=== PATIENT | male | born 1955 | race Caucasian/White ===

== ENCOUNTER 2022-04-12 19:00 | Inpatient (IN) | payer MEDICAID ==
[~2022-04-12] VITALS: Ht 188 cm; Wt 118.0 kg
[2022-04-12] VITALS (248 sets, daily range): BP systolic 143; BP diastolic 69; PULSE 112; TEMP 98.4; O2SAT 58–100
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
[2022-04-12 20:32] LABS: HEMATOCRIT 28.8 % (42.0-52.0); HEMOGLOBIN 9.7 g/dl (13.5-18.0)
[2022-04-12 20:33] LABS: INR 1.7 (0.8-3.0)
[2022-04-12] MEDS ORDERED: ASPIRIN 81M81 MG/TA2 (21:10)
[2022-04-12] MEDS ORDERED: FOLIC ACID 11 MG/TA1 (21:10)
[2022-04-12] MEDS ORDERED: LIPITOR 40MG TA40 MG PO (21:11)
[2022-04-12] MEDS ORDERED: PRIL40 (21:11)
[2022-04-12] MEDS ORDERED: COZAAR 50MG50 MG/TAB (21:11)
[2022-04-12] MEDS ORDERED: BACTRIM DS 8001 TAB (21:12)
[2022-04-12] MEDS ORDERED: DESYREL 50MG50 MG (21:14)
[2022-04-12] MEDS ORDERED: DAILY VITE1 TA1 (21:16)
[2022-04-12 22:00] LABS: URINE APPEARANCE Clear (CLEAR/HAZY); URINE BLOOD 3+ (NEGATIVE); URINE COLOR Yellow (YELLOW); URINE GLUCOSE Negative (NEGATIVE); URINE KETONE TRACE (NEGATIVE); URINE NITRATE Negative (NEGATIVE); URINE PROTEIN(semi-quant) TRACE (NEGATIVE); URINE UROBILINOGEN 0.2 E.U/dL (0.2-1.0)
[2022-04-12 22:04] LABS: SQUAMOUS EPITHELIAL 0-2 /hpf (0-10); URINE BACTERIA Rare /hpf (NONE SEEN); URINE RBC >50 /hpf (0-2); URINE WBC >50 /hpf (0-2)
[2022-04-12 22:14] LABS: COLLECTION METHOD CLEAN CATCH
--- NOTE | 2022-04-12 23:35 | NUR ---
Dr. Mendieta at bedside at this time.
[2022-04-13] VITALS (1228 sets, daily range): BP systolic 78–121; BP diastolic 53–86; PULSE 79–98; TEMP 97.3–99; O2SAT 92–100
[2022-04-13 01:15] LABS: HEMATOCRIT 27.7 % (42.0-52.0); HEMOGLOBIN 9.5 g/dl (13.5-18.0)
[2022-04-13 07:11] LABS: INR 1.7 (0.8-3.0); PROTHROMBIN TIME 19.4 SECONDS (9.7-12.8)
[2022-04-13 07:40] LABS: ALBUMIN 2.1 gm/dL (3.4-4.8); BILIRUBIN,TOTAL 3.2 mg/dL (0.2-1.2); CREATININE, serum 1.05 mg/dL (0.72-1.25); MAGNESIUM 1.7 mg/dL (1.6-2.6); POTASSIUM 4.8 mmol/L (3.5-4.5)
[2022-04-13 07:43] LABS: BASO # 0.1 K/mm3 (0.0-0.2); BASO % 0.5 % (0.0-2.0); EOS # 0.1 K/mm3 (0.0-0.7); EOS % 0.8 % (0.0-4.0); GRAN # 7.7 K/mm3 (1.4-6.5); GRAN % 59.5 % (42.2-75.2); LYMPH # 4.2 K/mm3 (1.2-3.4); LYMPH % 32.5 % (20.0-51.0); MEAN CELL VOLUME 97 fl (80.0-100.0); MEAN CORPUSCULAR HGB CONC 35 g/dl (33.0-37.0); MEAN PLATELET VOLUME 12.9 fl (7.4-10.4); MONO # 0.8 K/mm3 (0.1-0.6); MONO % 6.3 % (1.7-9.3); PLATELET COUNT 76 K/mm3 (130-400); RED BLOOD COUNT 2.78 M/mm3 (4.20-5.60); REDCELL DISTRIBUTION WIDTH-CV 19.3 % (11.5-14.5)
[2022-04-13 07:45] LABS: HEMOGLOBIN 9.4 g/dl (13.5-18.0); MEAN CORPUSCULAR HEMOGLOBIN 34 pg (27-31)
[2022-04-13 08:06] LABS: ALBUMIN 2.1 gm/dL (3.4-4.8); BILIRUBIN,DIRECT 1.1 mg/dL (0.0-0.5); BILIRUBIN,TOTAL 3.2 mg/dL (0.2-1.2); TOTAL PROTEIN 5.8 gm/dL (6.2-8.1)
--- NOTE | 2022-04-13 11:53 | NUR ---
PT SLEEPING DURING REPORT, ON PRECEDEX GTT. 0935: PT DOWN FOR EGD AT THIS TIME. DR. GARCIA IN ROOM TO DISCUSS POC W/ DAUGHTER MICAELA. ALL QUESTIONS ANSWERED. 1015: PT BACK FROM PROCEDURE AT THIS TIME. HOOKED UP TO MONITORING/POST OP VS. DR. GARCIA IN ROOM. ORDERS FOR NG. DAUGHTER AWARE OF PT BEING BACK TO ROOM. 1030: NG TUBE PLACED AND SECURED PER ORDER. NO ISSUES NOTED.
--- NOTE | 2022-04-13 12:46 | NUR ---
PRECEDEX PLACED ON STANDBY D/T PT SOMNOLENCE AND LOW BP.
--- NOTE | 2022-04-13 19:00 | NUR ---
BEDSIDE REPORT RECEIVED FROM STEFFANIE PATEL. PT IS SLEEPING. LR CURRENTLY RUNNING AT 60ML/HR. PT IS RECEIVING LACTULOSE Q2HRS UNTIL MULTIPLE BOWEL MOVEMENTS ARE MADE. PT WAS ABLE TO TELL ME THE YEAR, MONTH, AND THE CITY HE WAS IN. PT RESPONDS TO SPEECH. PTS HAS BECOME WHEEZY DURING INSPIRATION AND EXPIRATION.
--- NOTE | 2022-04-13 21:00 | NUR ---
CALL MADE TO LIOR YOUSIF ABOUT PTS BREATHING AND LUNG SOUNDS. PT IS STARTING TO SLIGHTLY BELLY BREATHE AND IS WHEEZING. BENJA HAS BEEN INFORMED AND STARTING BREATHING TREATMENTS.
[2022-04-14] VITALS (1403 sets, daily range): BP systolic 97–132; BP diastolic 72–87; PULSE 87–104; TEMP 97.9–99.5; O2SAT 95–100
--- NOTE | 2022-04-14 04:05 | NUR ---
PTS BLOOD GLUCOSE WAS 68 AT 0400 BLOOD SUGAR CHECK. GAVE PT 240MLS OF ORANGE JUICE AND WILL RECHECK SUGAR IN 15 MINUTES.
[2022-04-14 05:59] LABS: BASO # 0.1 K/mm3 (0.0-0.2); BASO % 0.6 % (0.0-2.0); EOS # 0.3 K/mm3 (0.0-0.7); EOS % 2.2 % (0.0-4.0); GRAN % 43.2 % (42.2-75.2); INR 1.5 (0.8-3.0); LYMPH # 5.2 K/mm3 (1.2-3.4); LYMPH % 44.4 % (20.0-51.0); MEAN CORPUSCULAR HGB CONC 34 g/dl (33.0-37.0); MEAN PLATELET VOLUME 11.9 fl (7.4-10.4); MONO # 1.1 K/mm3 (0.1-0.6); MONO % 9.2 % (1.7-9.3); PLATELET COUNT 73 K/mm3 (130-400); PROTHROMBIN TIME 17.8 SECONDS (9.7-12.8); RED BLOOD COUNT 2.42 M/mm3 (4.20-5.60); REDCELL DISTRIBUTION WIDTH-CV 19.8 % (11.5-14.5)
[2022-04-14 06:06] LABS: HEMATOCRIT 24.8 % (42.0-52.0); HEMOGLOBIN 8.3 g/dl (13.5-18.0); MEAN CORPUSCULAR HEMOGLOBIN 34 pg (27-31)
[2022-04-14 06:07] LABS: MEAN CELL VOLUME 103 fl (80.0-100.0)
[2022-04-14 06:16] LABS: BILIRUBIN,TOTAL 2.1 mg/dL (0.2-1.2); CREATININE, serum 1.21 mg/dL (0.72-1.25); POTASSIUM 4.3 mmol/L (3.5-4.5); TOTAL PROTEIN 5.5 gm/dL (6.2-8.1)
[2022-04-14 06:34] LABS: IRON,SERUM 145 ug/dL (50-175)
--- NOTE | 2022-04-14 09:40 | NUR ---
PT is awake in bed this am. PT states his and that [facility]. PT needs reminded of where he is and why. PT is calm and pleasant. Pt takes PO medication easily and tolerates clear liquid breakfast. Will remove NG and progress diet as ordered. PT educated on use of call ight. PT verbalizes understanding.
--- NOTE | 2022-04-14 09:47 | NUR ---
NG removed PT tolerated well.
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
[2022-04-14 18:09] LABS: HEMATOCRIT 25.9 % (42.0-52.0); HEMOGLOBIN 8.5 g/dl (13.5-18.0)
--- NOTE | 2022-04-14 19:00 | NUR ---
BEDSIDE REPORT RECEIVED FORM STEFFANIE FUENTES. PT ASSESSMENT COMPLETED. PT IS ALERT AND ORIENTED. VSS. NO CURRENT MEDICATIONS RUNNING. CALL LIGHT WITHIN REACH OF PT.
[2022-04-15] VITALS (740 sets, daily range): BP systolic 105–136; BP diastolic 55–81; PULSE 84–102; TEMP 97.4–99.1; O2SAT 32–100
[2022-04-15 06:41] LABS: BASO # 0.1 K/mm3 (0.0-0.2); BASO % 0.5 % (0.0-2.0); EOS # 0.4 K/mm3 (0.0-0.7); EOS % 3.4 % (0.0-4.0); GRAN # 4.9 K/mm3 (1.4-6.5); GRAN % 46.1 % (42.2-75.2); LYMPH # 4.3 K/mm3 (1.2-3.4); LYMPH % 39.8 % (20.0-51.0); MEAN CELL VOLUME 100 fl (80.0-100.0); MEAN CORPUSCULAR HGB CONC 34 g/dl (33.0-37.0); MEAN PLATELET VOLUME 11.7 fl (7.4-10.4); MONO % 9.7 % (1.7-9.3); PLATELET COUNT 85 K/mm3 (130-400); RED BLOOD COUNT 2.31 M/mm3 (4.20-5.60); REDCELL DISTRIBUTION WIDTH-CV 18.6 % (11.5-14.5)
[2022-04-15 06:47] LABS: HEMATOCRIT 23.1 % (42.0-52.0); HEMOGLOBIN 7.8 g/dl (13.5-18.0); MEAN CORPUSCULAR HEMOGLOBIN 34 pg (27-31)
[2022-04-15 07:00] LABS: INR 1.5 (0.8-3.0); PROTHROMBIN TIME 17.3 SECONDS (9.7-12.8)
[2022-04-15 07:05] LABS: ALBUMIN 1.9 gm/dL (3.4-4.8); BILIRUBIN,TOTAL 1.5 mg/dL (0.2-1.2); CALCIUM 7.5 mg/dL (8.4-10.2); CREATININE, serum 1.01 mg/dL (0.72-1.25); POTASSIUM 3.5 mmol/L (3.5-4.5); TOTAL PROTEIN 5.4 gm/dL (6.2-8.1)
--- NOTE | 2022-04-15 13:37 | NUR ---
REPORT GIVEN TO STEFFANIE GARCIA.
--- NOTE | 2022-04-15 14:20 | NUR ---
PT TRANSFERRED TO ROOM 353 VIA WHEELCHAIR. PT MOVED TO MEDICAL BED. STEFFANIE GARCIA ASSUMED CARE AT 1402
--- NOTE | 2022-04-15 16:30 | NUR ---
PT BROTHER DON LEFT PHONE NUMBER WITH NURSES STATION. CAN BE REACHED AT [phone].
--- NOTE | 2022-04-15 16:59 | NUR ---
PT ADMITTTED TO ROOM 353, TRANSPORTED FROM ICU PER WC, VSS, PT DENIES PAIN, FALL PRECAUTIONS IN PLACE, CALL LIGHT IN REACH, PT UPDATED ON PLAN OF CARE AND ROOM/FLOOR ROUTINES
[2022-04-15 18:24] LABS: HEMATOCRIT 22.6 % (42.0-52.0); HEMOGLOBIN 7.6 g/dl (13.5-18.0)
--- NOTE | 2022-04-15 21:35 | NUR ---
Patient assessed around 1914. Given miralax per orders for bowel prep. Planning on colonoscopy tomorrow. Patient aware that he is NPO after midnight. Patient voices no questions, needs, or concerns at this time. Denies nausea/upset stomach. In bed with call light within reach. High fall risk precautions in place. Bed alarm on.
[2022-04-16] VITALS (16 sets, daily range): BP systolic 110–161; BP diastolic 51–536; PULSE 76–103; TEMP 97.9–98.8
--- NOTE | 2022-04-16 05:51 | NUR ---
Patient having clear liquid stools. NPO since midnight except took medication with sips of water. Patient voices no questions, needs, or concerns at this time. In bed with call light within reach.
[2022-04-16 06:30] LABS: BASO # 0.1 K/mm3 (0.0-0.2); BASO % 0.7 % (0.0-2.0); EOS # 0.3 K/mm3 (0.0-0.7); EOS % 3.1 % (0.0-4.0); GRAN # 4.6 K/mm3 (1.4-6.5); GRAN % 43.7 % (42.2-75.2); LYMPH # 4.4 K/mm3 (1.2-3.4); LYMPH % 41.6 % (20.0-51.0); MEAN CELL VOLUME 100 fl (80.0-100.0); MEAN CORPUSCULAR HGB CONC 34 g/dl (33.0-37.0); MEAN PLATELET VOLUME 12.4 fl (7.4-10.4); MONO # 1.1 K/mm3 (0.1-0.6); MONO % 10.3 % (1.7-9.3); PLATELET COUNT 92 K/mm3 (130-400)
[2022-04-16 06:35] LABS: HEMATOCRIT 23.9 % (42.0-52.0); HEMOGLOBIN 8.1 g/dl (13.5-18.0); MEAN CORPUSCULAR HEMOGLOBIN 34 pg (27-31)
[2022-04-16 06:44] LABS: CALCIUM 7.8 mg/dL (8.4-10.2); CREATININE, serum 0.8 mg/dL (0.72-1.25); POTASSIUM 3.5 mmol/L (3.5-4.5)
--- NOTE | 2022-04-16 09:01 | NUR ---
VSS,PT RESTING IN BED, FALL PRECAUTIONS IN PLACE, CALL LIGHT IN REACH
[2022-04-16 10:47] LABS: ANA SCREEN with REFLEX Negative (Negative)
--- NOTE | 2022-04-16 14:29 | NUR ---
IFTIKHAR LEMON'Maci AT 1410 PER REYES LIANG
--- NOTE | 2022-04-16 16:12 | NUR ---
Ceramic Engineering Professor met with patient to discuss recommendation for post acute rehab. SW advised that with patient's payer source of Medicaid, SNF would not be an option. VIDYA dicsussed Swing Bed with patient who advised he would be agreeable to that and that there is a hospital where he lives, in [place]. VIDYA contacted [facility] and faxed referral. Discharge Plan: [facility] SB pending referral
--- NOTE | 2022-04-16 21:41 | NUR ---
Patient assessed around 1934. Continues on IV ABX per orders. Denies having pain and discomfort. Voices no questions, needs, or concerns at this time. In bed with call light within reach. Bed alarm on.
[2022-04-17 04:05] VITALS: BP 109/53; PULSE 95; TEMP 98.2
--- NOTE | 2022-04-17 05:41 | NUR ---
Patient denies having pain and discomfort at this time. Voices no questions, needs, or concerns at this time. In bed with call light within reach. High fall risk precautions in place.
[2022-04-17 05:59] LABS: BASO % 0.5 % (0.0-2.0); EOS # 0.2 K/mm3 (0.0-0.7); EOS % 2.8 % (0.0-4.0); GRAN # 3.3 K/mm3 (1.4-6.5); GRAN % 40.1 % (42.2-75.2); LYMPH # 3.5 K/mm3 (1.2-3.4); LYMPH % 43.5 % (20.0-51.0); MEAN CELL VOLUME 99 fl (80.0-100.0); MEAN CORPUSCULAR HGB CONC 34 g/dl (33.0-37.0); MEAN PLATELET VOLUME 11.4 fl (7.4-10.4); MONO % 12.7 % (1.7-9.3); PLATELET COUNT 86 K/mm3 (130-400); RED BLOOD COUNT 2.15 M/mm3 (4.20-5.60); REDCELL DISTRIBUTION WIDTH-CV 17.7 % (11.5-14.5)
[2022-04-17 06:20] LABS: HEMATOCRIT 21.2 % (42.0-52.0); HEMOGLOBIN 7.2 g/dl (13.5-18.0); MEAN CORPUSCULAR HEMOGLOBIN 33 pg (27-31)
[2022-04-17 06:23] LABS: ALBUMIN 1.8 gm/dL (3.4-4.8); BILIRUBIN,TOTAL 1.4 mg/dL (0.2-1.2); CALCIUM 7.4 mg/dL (8.4-10.2); CREATININE, serum 0.75 mg/dL (0.72-1.25); POTASSIUM 3.7 mmol/L (3.5-4.5); TOTAL PROTEIN 5.3 gm/dL (6.2-8.1)
[2022-04-17 06:28] LABS: INR 1.5 (0.8-3.0); PROTHROMBIN TIME 17.6 SECONDS (9.7-12.8)
[2022-04-17 06:33] LABS: MAGNESIUM 1.7 mg/dL (1.6-2.6)
[2022-04-17 08:00] VITALS: BP 113/56; PULSE 89; TEMP 98
--- NOTE | 2022-04-17 08:30 | NUR ---
Patient is lying in bed, alert and oriented x 4, denies pain, n/v. He ate all his breakfast. States he had a bad night, not able to sleep and generaized discomfort. Assessment completed, meds provided. No other needs at this time. Call light within reach.
[2022-04-17 12:00] VITALS: BP 114/58; PULSE 86; TEMP 97.9
--- NOTE | 2022-04-17 14:42 | NUR ---
Glass Mould Cleaner recevied a message from [facility] that advised they cannot accept Medicaid for swing bed so they will have to decline referral. SW faxed referrals to [facility], [facility], and [facility]. VIDYA met with patient to provide update and advise that if SB placement cannot be found, he would have to return home and patient verbalized understanding. VIDYA consulted IPR Director who advised patient would not qualify. VIDYA contacted patient's daughter, Michaelle to provide update. Her preference is SB but advised it would also be no problem for patient to return home. Michaelle stated her job is flexible and she can provide transport for patient.
--- NOTE | 2022-04-17 16:10 | NUR ---
[facility] Bed declined referral.
[2022-04-17 16:16] VITALS: BP 120/59; PULSE 88; TEMP 98.2
--- NOTE | 2022-04-17 18:35 | NUR ---
Patient has gone to the restrom with not blood in stools. He continues feeling weak. Getting antibiotics. Right now ordering dinner. Report will be given to erica RN.
--- NOTE | 2022-04-17 20:15 | NUR ---
Initial shift assessment done- Up to bathroom with assistance- states has had multiple loose stools today, will not give the lactulose as order states to make QD at this time, back to bed, finishing up his supper, no other requests, denies pain except for very slight NAQVI
[2022-04-17 20:49] VITALS: BP 126/57; PULSE 88; TEMP 97.8
--- NOTE | 2022-04-17 22:45 | NUR ---
Up to bathroom with assist- had another loose brown stool at this time, back to bed,,states headache 02/17 to back of head,,Jessica JEFFERY called abd order obtained for Ultram prn-- given per order at this time.
[2022-04-18 00:12] VITALS: BP 117/53; PULSE 89; TEMP 98.1
[2022-04-18 04:17] VITALS: BP 124/53; PULSE 85; TEMP 97.9
--- NOTE | 2022-04-18 05:53 | NUR ---
Quiet night- slept well last night after the Tramadol was given- Did have loose brown stool x2 during this shift, voiding without problems.
[2022-04-18 07:05] LABS: ALBUMIN 1.9 gm/dL (3.4-4.8); BILIRUBIN,TOTAL 1.7 mg/dL (0.2-1.2); CALCIUM 7.6 mg/dL (8.4-10.2); CREATININE, serum 0.74 mg/dL (0.72-1.25); POTASSIUM 3.9 mmol/L (3.5-4.5); TOTAL PROTEIN 5.5 gm/dL (6.2-8.1)
[2022-04-18 08:01] VITALS: BP 117/67; PULSE 93; TEMP 98.2
[2022-04-18 08:02] LABS: BASO % 0.6 % (0.0-2.0); EOS # 0.3 K/mm3 (0.0-0.7); EOS % 4.1 % (0.0-4.0); GRAN # 2.2 K/mm3 (1.4-6.5); GRAN % 30.2 % (42.2-75.2); LYMPH # 3.6 K/mm3 (1.2-3.4); LYMPH % 50.5 % (20.0-51.0); MEAN CELL VOLUME 99 fl (80.0-100.0); MEAN CORPUSCULAR HGB CONC 35 g/dl (33.0-37.0); MEAN PLATELET VOLUME 12.5 fl (7.4-10.4); MONO % 14.2 % (1.7-9.3); PLATELET COUNT 81 K/mm3 (130-400); RED BLOOD COUNT 2.31 M/mm3 (4.20-5.60); REDCELL DISTRIBUTION WIDTH-CV 18.6 % (11.5-14.5)
[2022-04-18 08:06] LABS: HEMATOCRIT 22.8 % (42.0-52.0); MEAN CORPUSCULAR HEMOGLOBIN 35 pg (27-31)
[2022-04-18] MEDS ORDERED: ALDACTONE50 MG PO (09:45)
[2022-04-18] MEDS ORDERED: PROTONIX 40MG T40 MG PO (09:46)
[2022-04-18] MEDS ORDERED: MAG-OX 400400 MG/TAB PO (09:48)
[2022-04-18] MEDS ORDERED: FERROUSAL325 MG PO (09:48)
[2022-04-18] MEDS ORDERED: LACTULOSE10 GM/153 PO (09:49)
--- NOTE | 2022-04-18 11:08 | NUR ---
PT DISCHARGE PACKET AND EDUCATION PROVIDED TO PATIENT AND DAUGHTER AT BEDSIDE. ALL QUESTIONS ANSWERED. IV REMOVED PER PROTOCOL. PATIENT SAFELY TRANSPORTED VIA WHEELCHAIR BY THIS RN TO ER ENTRANCE TO FAMILY VEHICLE FOR DISCHARGE.
[2022-04-18 11:29] LABS: ANTISMOOTH MUSCLE ANTIBODY Negative (Negative)
--- NOTE | 2022-04-18 12:55 | NUR ---
Ground Control Approach Technician collaborated with Manju, IPR Director and Diandra, Batchmaker for [facility]. Both are interested in taking patient for rehab. VIDYA followed up with patient and his daughter, Michaelle at bedside. Patient states he wants to return back home. SW will assist with arrangements. Patient's daughter, Michaelle stated she thinks patient would benefit from rehab but is supportive of taking patient home. Michaelle advised patient will need a front wheeled walker and that she already has a bedside commode at home. VIDYA scheduled outpatient PT/OT appointments then provided them to unit receptionist who included them in patient's discharge instructions. VIDYA then contacted [facility] in [place] and faxed referral and order for FWW. VIDYA updated patient's daughter Michaelle on PT/OT appointments and FWW. She will transport patient home today. Discharge Plan: Home
== END 2022-04-18 11:09 | disposition home or self-care (01) | DRG 377 ==
LOC: MEDICAL 19:00 → ICU 19:00 → MEDICAL 04-15 14:39
PROVIDERS: Internal Medicine; Internal Medicine Gastroenterology; Physician Assistant; Student in an Organized Health Care Education/Training Program; ADMIT Internal Medicine
PROC: 0DJ08ZZ Inspection of Upper Intestinal Tract, Via Natural or Artificial Opening Endoscopic (ICD-10-PCS; 2022-04-13)
PROC: 0DBL8ZX Excision of Transverse Colon, Via Natural or Artificial Opening Endoscopic, Diagnostic (ICD-10-PCS; 2022-04-16)
PROC: 0DBN8ZX Excision of Sigmoid Colon, Via Natural or Artificial Opening Endoscopic, Diagnostic (ICD-10-PCS; principal; 2022-04-16 11:00)
DX: K92.2 Gastrointestinal hemorrhage, unspecified (principal); K72.00 Acute and subacute hepatic failure without coma; K76.6 Portal hypertension; A04.0 Enteropathogenic Escherichia coli infection; G72.81 Critical illness myopathy; F10.10 Alcohol abuse, uncomplicated; I10 Essential (primary) hypertension; F19.10 Other psychoactive substance abuse, uncomplicated; E77.8 Other disorders of glycoprotein metabolism; E88.09 Other disorders of plasma-protein metabolism, not elsewhere classified; F17.210 Nicotine dependence, cigarettes, uncomplicated; I87.8 Other specified disorders of veins; R79.1 Abnormal coagulation profile; D12.3 Benign neoplasm of transverse colon; D12.5 Benign neoplasm of sigmoid colon; K64.0 First degree hemorrhoids; K57.30 Diverticulosis of large intestine without perforation or abscess without bleeding; E78.5 Hyperlipidemia, unspecified; G47.33 Obstructive sleep apnea (adult) (pediatric); K21.9 Gastro-esophageal reflux disease without esophagitis; I65.29 Occlusion and stenosis of unspecified carotid artery; F32.A Depression, unspecified; F41.9 Anxiety disorder, unspecified; G62.9 Polyneuropathy, unspecified; J44.9 Chronic obstructive pulmonary disease, unspecified; I95.9 Hypotension, unspecified; K70.31 Alcoholic cirrhosis of liver with ascites; K31.89 Other diseases of stomach and duodenum; D64.9 Anemia, unspecified; Z79.82 Long term (current) use of aspirin; Z88.1 Allergy status to other antibiotic agents; Z88.0 Allergy status to penicillin
CPT/HCPCS: 87522; C9113; J0330; J0696; J1940; J2060; J2354; J2704; J2765; J3411; J3430; J7030; J7040; J7120; Q9967